=== PATIENT | male | born 1990 | race Caucasian/White ===

== ENCOUNTER 2024-01-20 15:23 | Emergency (ER) | payer MEDICAID ==
[~2024-01-20] VITALS: Ht 172.7 cm; Wt 117.9 kg
[2024-01-20 15:30] VITALS: BP 123/82; PULSE 97; RESP 18; TEMP 97.8; O2SAT 100
[2024-01-20] MEDS: FLUORESCEIN OPTH STRIP 1 MG OP ONE (16:30)
[2024-01-20] MEDS ORDERED: IBUP-2213 PO (16:38)
[2024-01-20] MEDS ORDERED: ACET-10509 PO (16:38)
[2024-01-20] MEDS ORDERED: ERYT5OIN51 RIGHT EYE (16:38)
[2024-01-20 16:43] VITALS: BP 122/67; PULSE 88; RESP 16; TEMP 97.8; O2SAT 100
== END 2024-01-20 16:43 | disposition home or self-care (01) ==
LOC: MED 15:23
DX: H57.11 Ocular pain, right eye (principal); T15.81XA Foreign body in other and multiple parts of external eye, right eye, initial encounter; Z79.899 Other long term (current) drug therapy
CPT/HCPCS: 65205; 99284